=== PATIENT | female | born 1995 | race African-American/Black ===

== ENCOUNTER 2022-07-02 15:34 | Day surgery (SDC) | payer OTHER, SELFPAY ==
[2022-07-02 16:01] VITALS: BMI 34.0
[2022-07-02] MEDS ORDERED: hydrALAZINE 20 MG/ML VIAL SLOW IVP PRN ×2 (16:12→16:15)
[2022-07-02] MEDS ORDERED: Promethazine HCl 25 MG/ML VIAL IM PRN (16:15)
[2022-07-02] MEDS ORDERED: Ondansetron PF 4 MG/2 ML Vial IVP PRN (16:15)
[2022-07-02 17:44] LABS: Mean Corpuscular HGB CONC 32.1 g/dL (32.0-36.0); Mean Corpuscular Hemoglobin 28.5 pg (27.0-33.0); Mean Corpuscular Volume 88.6 fl (81.6-98.3); Mean Platelet Volume 9.1 fl (7.4-10.4); Platelet Count 221 10x3/uL (150-450); RBC Distribution Width 13.2 % (11.5-14.5); Red Blood Cell (RBC) Count 3.16 10x6/uL (3.90-5.03); White Blood Cell (WBC) Count 9.6 10x3/uL (3.5-10.5)
[2022-07-02 18:07] LABS: Bilirubin Neg (Negative); Blood, Urine Negative (Negative); Clarity Clear (Clear); Glucose, Urine (Dipstick) Normal (Negative); Ketone, Urine Negative (Negative); Leukocyte 25 (Negative); Nitrite Negative (Negative); Protein, Urine (Dipstick) 15 mg/dl (Neg-Trace); Specific Gravity, Urine 1.025 (1.005-1.030)
[2022-07-02 18:08] LABS: HBSAg Index 0.18 S/CO (0-0.99); HIV (1/2) Antibody/Antigen Non-Reactive (NonReactive); HIV 1/2 INDEX 0.09 S/CO (<1.00); Hep B Surf Ag - L&D Non-Reactive S/CO (NonReactive)
[2022-07-02 18:09] LABS: Syphilis Antibody Nonreactive (Nonreactive); Syphilis Antibody Index 0.04 S/CO (<1.00 Non-Reactive)
[2022-07-02 18:13] LABS: Amphetamine Not Detected (NotDetected); Barbiturates Screen Not Detected (NotDetected); Benzodiazepine Screen Not Detected (NotDetected); Cocaine Metabolite Screen Not Detected (NotDetected); Methadone Not Detected (NotDetected); Methamphetamine Not Detected (NotDetected); Opiate Screen Not Detected (NotDetected); Oxycodone Screen Not Detected (NotDetected); Phencyclidine (PCP) Not Detected (NotDetected); THC/Cannabinoid Screen Not Detected (NotDetected); Tricyclic Screen Not Detected (NotDetected)
[2022-07-02 18:24] LABS: CAUTI Indications for Culture Pregnancy; RBC/HPF 0-3 HPF (0-3)
[2022-07-02 18:25] LABS: Bacteria/HPF Rare-Few HPF (None Seen); Mucous/LPF 1+ LPF (<2+)
[2022-07-02 18:27] LABS: Urine Culture Reflex Yes Yes
[2022-07-02] MEDS ORDERED: Calcium Carbonate 500 MG ChewTAB PO SCH (19:00)
[2022-07-02 22:37] LABS: Hemoglobin A1c 4.8 % (4.0-6.0)
[2022-07-02 23:48] LABS: HBSAB Concentration 44.44 mIU/mL; Hep B Surf AB Reactive (NonReactive)
[2022-07-03] MEDS ORDERED: Calcium Carbonate 500 MG ChewTAB PO SCH (09:00)
[2022-07-03 11:30] LABS: Chlamydia by PCR, EndoCx Swab Not Detected (NotDetected); GC by PCR, EndoCx Swab Not Detected (NotDetected)
== END 2022-07-02 18:53 | disposition home or self-care (01) ==
LOC: CSHLD/OP 15:34
PROVIDERS: ATTEND Internal Medicine
DX: O23.593 Infection of other part of genital tract in pregnancy, third trimester (principal); O30.003 Twin pregnancy, unspecified number of placenta and unspecified number of amniotic sacs, third trimester; O99.013 Anemia complicating pregnancy, third trimester; D64.9 Anemia, unspecified; Z3A.32 32 weeks gestation of pregnancy
CPT/HCPCS: 36415; 76805; 80306; 81001; 83036; 85027; 86706; 86762; 86780; 86850; 86900; 86901; 87077; 87086; 87340; 87389; 87480; 87491; 87510; 87591; 87660; 99283

== ENCOUNTER 2022-07-13 03:30 | Day surgery (SDC) | payer OTHER ==
[2022-07-13] MEDS ORDERED: hydrALAZINE 20 MG/ML VIAL SLOW IVP PRN (04:02)
[2022-07-13] MEDS ORDERED: Lactated Ringer's 1,000 ML IV SCH (04:15)
[2022-07-13 06:00] LABS: Bilirubin Neg (Negative); Blood, Urine 10 (Negative); Clarity Cloudy (Clear); Glucose, Urine (Dipstick) Normal (Negative); Ketone, Urine 5 mg/dL (Negative); Leukocyte 25 (Negative); Nitrite Negative (Negative); Protein, Urine (Dipstick) 30 mg/dl (Neg-Trace)
[2022-07-13 06:36] LABS: ALT (SGPT) 8 U/L (8-55); AST (SGOT) 13 U/L (5-34); Albumin 3.4 g/dL (3.5-5.0); Alkaline Phosphatase 125 U/L (40-110); Anion Gap 16 mmol/L (10-20); BUN (Urea Nitrogen) 6 mg/dL (7.0-18.7); Bilirubin, Total 0.4 mg/dL (0.2-1.2); Calc. Creatinine Clearance 0 mL/min (70-130); Calcium 8.7 mg/dL (7.8-10.44); Carbon Dioxide 18 mmol/L (22-29); Chloride 107 mmol/L (98-107); Estimated GFR 131; Globulin 2.9 g/dL (2.4-3.5); Glucose 68 mg/dL (70-105); Potassium 3.7 mmol/L (3.5-5.1); Protein, Total 6.3 g/dL (6.0-8.3); Sodium 137 mmol/L (136-145)
[2022-07-13 06:37] LABS: Bacteria/HPF None Seen HPF (None Seen); CAUTI Indications for Culture Dysuria,urgency,freq; RBC/HPF 0-3 HPF (0-3); WBC/HPF 0-3 HPF (0-3)
[2022-07-13 06:38] LABS: Urine Culture Reflex No No
[2022-07-13 06:47] LABS: #Monocytes 0.7 10x3/uL (0.0-1.1); #Neutrophils 6.1 10x3/uL (1.5-8.4); %Basophils 0.4 % (0.0-2.0); %Eosinophils 0.5 % (0.0-6.0); %Lymphocytes 18.4 % (18.0-47.0); %Monocytes 8.3 % (0.0-10.0); %Neutrophils 71.6 % (40.0-75.0); Hemoglobin 9.1 g/dL (12.0-15.5); Mean Corpuscular HGB CONC 32.3 g/dL (32.0-36.0); Mean Corpuscular Hemoglobin 28.3 pg (27.0-33.0); Mean Corpuscular Volume 87.9 fl (81.6-98.3); Mean Platelet Volume 9.5 fl (7.4-10.4); Platelet Count 215 10x3/uL (150-450); RBC Distribution Width 13.3 % (11.5-14.5); Red Blood Cell (RBC) Count 3.21 10x6/uL (3.90-5.03); White Blood Cell (WBC) Count 8.4 10x3/uL (3.5-10.5)
== END 2022-07-13 07:42 | disposition home health service (06) ==
LOC: CSHLD/OP 03:30
PROVIDERS: ATTEND Obstetrics & Gynecology
DX: O46.93 Antepartum hemorrhage, unspecified, third trimester (principal); O40.3XX2 Polyhydramnios, third trimester, fetus 2; O30.003 Twin pregnancy, unspecified number of placenta and unspecified number of amniotic sacs, third trimester; O99.013 Anemia complicating pregnancy, third trimester; D64.9 Anemia, unspecified; O99.323 Drug use complicating pregnancy, third trimester; F15.10 Other stimulant abuse, uncomplicated; O99.333 Smoking (tobacco) complicating pregnancy, third trimester; F17.210 Nicotine dependence, cigarettes, uncomplicated; O23.593 Infection of other part of genital tract in pregnancy, third trimester; O23.43 Unspecified infection of urinary tract in pregnancy, third trimester; R30.0 Dysuria; O99.413 Diseases of the circulatory system complicating pregnancy, third trimester; R00.0 Tachycardia, unspecified; B96.89 Other specified bacterial agents as the cause of diseases classified elsewhere; Z79.82 Long term (current) use of aspirin; Z79.899 Other long term (current) drug therapy; Z3A.34 34 weeks gestation of pregnancy
CPT/HCPCS: 76805; 76810; 80053; 81001; 85025; 87480; 87510; 87660; 99285

== ENCOUNTER 2022-07-16 15:17 | Day surgery (SDC) | payer OTHER ==
[2022-07-16 16:13] VITALS: BMI 34.0
[2022-07-16] MEDS ORDERED: hydrALAZINE 20 MG/ML VIAL SLOW IVP PRN (16:18)
[2022-07-16] MEDS ORDERED: Calcium Carbonate 500 MG ChewTAB PO SCH (18:00)
== END 2022-07-16 18:55 | disposition home or self-care (01) ==
LOC: CSHLD/OP 15:17
PROVIDERS: ATTEND Family Medicine
DX: O36.63X0 Maternal care for excessive fetal growth, third trimester, not applicable or unspecified (principal); O99.214 Obesity complicating childbirth; E66.9 Obesity, unspecified; O30.043 Twin pregnancy, dichorionic/diamniotic, third trimester; O09.43 Supervision of pregnancy with grand multiparity, third trimester; O99.013 Anemia complicating pregnancy, third trimester; D50.9 Iron deficiency anemia, unspecified; O99.613 Diseases of the digestive system complicating pregnancy, third trimester; K21.9 Gastro-esophageal reflux disease without esophagitis; K30 Functional dyspepsia; Z90.89 Acquired absence of other organs; Z79.899 Other long term (current) drug therapy; Z87.891 Personal history of nicotine dependence; Z3A.34 34 weeks gestation of pregnancy
CPT/HCPCS: 99282

== ENCOUNTER 2022-07-22 12:32 | Day surgery (SDC) | payer OTHER ==
[2022-07-22] MEDS ORDERED: hydrALAZINE 20 MG/ML VIAL SLOW IVP PRN (13:46)
[2022-07-22] MEDS ORDERED: Acetaminophen 500 MG TAB PO SCH (14:00)
[2022-07-22 14:16] VITALS: BMI 36.3
[2022-07-22 14:49] LABS: Creatinine, Urine 192.89 mg/dL (47-110)
[2022-07-22 14:58] LABS: #Eosinphils 0.1 10x3/uL (0.0-0.5); #Monocytes 0.7 10x3/uL (0.0-1.1); #Neutrophils 7.2 10x3/uL (1.5-8.4); %Basophils 0.4 % (0.0-2.0); %Eosinophils 0.5 % (0.0-6.0); %Lymphocytes 18.7 % (18.0-47.0); %Monocytes 6.9 % (0.0-10.0); %Neutrophils 72.8 % (40.0-75.0); Hemoglobin 9.2 g/dL (12.0-15.5); Mean Corpuscular HGB CONC 31.7 g/dL (32.0-36.0); Mean Corpuscular Hemoglobin 28.1 pg (27.0-33.0); Mean Corpuscular Volume 88.7 fl (81.6-98.3); Mean Platelet Volume 9.2 fl (7.4-10.4); Platelet Count 225 10x3/uL (150-450); RBC Distribution Width 13.6 % (11.5-14.5); Red Blood Cell (RBC) Count 3.27 10x6/uL (3.90-5.03); White Blood Cell (WBC) Count 9.8 10x3/uL (3.5-10.5)
[2022-07-22 15:11] LABS: ALT (SGPT) 10 U/L (8-55); AST (SGOT) 14 U/L (5-34); Albumin 3.5 g/dL (3.5-5.0); Alkaline Phosphatase 137 U/L (40-110); Anion Gap 17 mmol/L (10-20); BUN (Urea Nitrogen) 4 mg/dL (7.0-18.7); Bilirubin, Total 0.5 mg/dL (0.2-1.2); Calc. Creatinine Clearance 263 mL/min (70-130); Calcium 8.7 mg/dL (7.8-10.44); Carbon Dioxide 17 mmol/L (22-29); Chloride 106 mmol/L (98-107); Estimated GFR 130; Globulin 3.1 g/dL (2.4-3.5); Glucose 68 mg/dL (70-105); Potassium 3.9 mmol/L (3.5-5.1); Protein, Total 6.6 g/dL (6.0-8.3); Sodium 136 mmol/L (136-145)
== END 2022-07-22 15:35 | disposition home or self-care (01) ==
LOC: CSHLD/OP 12:32
PROVIDERS: ATTEND Student in an Organized Health Care Education/Training Program
DX: O99.891 Other specified diseases and conditions complicating pregnancy (principal); R03.0 Elevated blood-pressure reading, without diagnosis of hypertension; O99.013 Anemia complicating pregnancy, third trimester; D64.9 Anemia, unspecified; O99.333 Smoking (tobacco) complicating pregnancy, third trimester; F17.210 Nicotine dependence, cigarettes, uncomplicated; O99.213 Obesity complicating pregnancy, third trimester; E66.9 Obesity, unspecified; Z87.59 Personal history of other complications of pregnancy, childbirth and the puerperium; O09.33 Supervision of pregnancy with insufficient antenatal care, third trimester; O23.593 Infection of other part of genital tract in pregnancy, third trimester; B37.31 Acute candidiasis of vulva and vagina; O30.043 Twin pregnancy, dichorionic/diamniotic, third trimester; Z79.899 Other long term (current) drug therapy; Z22.330 Carrier of Group B streptococcus; Z3A.35 35 weeks gestation of pregnancy
CPT/HCPCS: 36415; 80053; 82570; 84156; 85025

== ENCOUNTER 2022-07-30 03:15 | Inpatient (IN) | payer OTHER ==
[2022-07-30 03:41] VITALS: BMI 35.2
[2022-07-30] MEDS: Lactated Ringer's 1,000 ML IV SCH ×2 (03:46→04:55)
[2022-07-30] MEDS ORDERED: hydrALAZINE 20 MG/ML VIAL SLOW IVP PRN ×2 (04:17→06:19)
[2022-07-30] MEDS ORDERED: fentaNYL 50 mcg/mL 1 mL Vial SLOW IVP PRN (04:45)
[2022-07-30] MEDS ORDERED: Ondansetron PF 4 MG/2 ML Vial IVP PRN ×5 (06:19→23:02)
[2022-07-30] MEDS ORDERED: Promethazine HCl 25 MG/ML VIAL IM PRN ×5 (06:19→23:02)
[2022-07-30] MEDS ORDERED: Lidocaine 1% (PF) 30 ML VIAL SC PRN (06:19)
[2022-07-30] MEDS ORDERED: Carboprost 250 MCG/ML AMP IM PRN (06:20)
[2022-07-30] MEDS ORDERED: Misoprostol 200 MCG TAB PR PRN (06:20)
[2022-07-30] MEDS ORDERED: Methylergonovine 0.2 MG/ML VIAL IM PRN (06:20)
[2022-07-30] MEDS ORDERED: Tranexamic Acid 1,000 MG/10 ML VIAL IVP PRN (06:20)
[2022-07-30] MEDS ORDERED: Diphenoxylate HCl/Atropine Tablet PO PRN (06:20)
[2022-07-30] MEDS ORDERED: NS w/ Oxytocin 30 units 500 ML IV SCH ×2 (06:30)
[2022-07-30] MEDS ORDERED: Lactated Ringer's 1,000 ML IV SCH (06:30)
[2022-07-30] MEDS ORDERED: Penicillin G Potassium 5 MILL.UNITS in Sodium Chloride 0.9% 100 ML IVPB SCH (06:30)
[2022-07-30 07:04] LABS: Mean Corpuscular HGB CONC 31.5 g/dL (32.0-36.0); Mean Corpuscular Hemoglobin 27.7 pg (27.0-33.0); Mean Corpuscular Volume 87.8 fl (81.6-98.3); Mean Platelet Volume 9.5 fl (7.4-10.4); Platelet Count 248 10x3/uL (150-450); RBC Distribution Width 13.8 % (11.5-14.5); Red Blood Cell (RBC) Count 3.61 10x6/uL (3.90-5.03); White Blood Cell (WBC) Count 12.9 10x3/uL (3.5-10.5)
[2022-07-30] MEDS ORDERED: Fentanyl 2 mcg/Bup 0.1% Cadd 100 ML ONE (07:27)
[2022-07-30 07:29] LABS: Syphilis Antibody Nonreactive (Nonreactive); Syphilis Antibody Index 0.06 S/CO (<1.00 Non-Reactive)
[2022-07-30 07:31] LABS: HBSAg Index 0.12 S/CO (0-0.99); Hep B Surf Ag - L&D Non-Reactive S/CO (NonReactive)
[2022-07-30 09:32] LABS: ALT (SGPT) 10 U/L (8-55); AST (SGOT) 19 U/L (5-34); Albumin 3.6 g/dL (3.5-5.0); Alkaline Phosphatase 139 U/L (40-110); Anion Gap 18 mmol/L (10-20); BUN (Urea Nitrogen) 8 mg/dL (7.0-18.7); Bilirubin, Total 0.6 mg/dL (0.2-1.2); Calc. Creatinine Clearance 216 mL/min (70-130); Calcium 9.1 mg/dL (7.8-10.44); Carbon Dioxide 16 mmol/L (22-29); Chloride 107 mmol/L (98-107); Estimated GFR 124; Globulin 2.8 g/dL (2.4-3.5); Glucose 77 mg/dL (70-105); Potassium 3.9 mmol/L (3.5-5.1); Protein, Total 6.4 g/dL (6.0-8.3); Sodium 137 mmol/L (136-145)
[2022-07-30] MEDS: Penicillin G 2.5 MILL.units 2.5 MILL.UNITS in Premix Bag 1 BAG IVPB SCH (10:41)
[2022-07-30] MEDS ORDERED: Acetaminophen 325 MG TAB PO PRN (11:29)
[2022-07-30] MEDS ORDERED: Lactated Ringer's 500 ML IV PRN (11:29)
[2022-07-30] MEDS ORDERED: ePHEDrine Sulfate 50 MG/10 ML VIAL SLOW IVP PRN (11:29)
[2022-07-30] MEDS ORDERED: Moisturizing Cream (Eucerin) 113 GM JAR TOP PRN ×3 (11:29→23:02)
[2022-07-30] MEDS ORDERED: diphenhydrAMINE 50 MG/ML VIAL IVP PRN ×4 (11:29→23:02)
[2022-07-30] MEDS ORDERED: Naloxone HCl 0.4 mg/ml Vial IVP PRN ×6 (11:29→23:02)
[2022-07-30] MEDS ORDERED: Fentanyl 2 mcg/Bupivacaine 0.1% Cassette 100 ML EPIDURAL SCH (11:30)
[2022-07-30] MEDS ORDERED: Communication Order-Pharmacy FS SCH ×4 (11:30→23:15)
[2022-07-30] MEDS ORDERED: ePHEDrine Sulfate 50 MG/10 ML VIAL ONE (16:00)
[2022-07-30] MEDS ORDERED: Bupivacaine PF 0.5% 30 ML VIAL ONE (16:00)
[2022-07-30] MEDS ORDERED: Lidocaine 2% MPF 10 ML AMP (For Epidural Use) ONE (16:00)
[2022-07-30] MEDS ORDERED: Fentanyl 250 MCG/5 ML VIAL ONE ×2 (19:03→19:33)
[2022-07-30] MEDS ORDERED: CEFAZOLIN 1 GM VIAL ONE (19:13)
[2022-07-30] MEDS ORDERED: Azithromycin 500 MG VIAL ONE (19:14)
[2022-07-30] MEDS ORDERED: Ondansetron PF 4 MG/2 ML Vial ONE (19:17)
[2022-07-30] MEDS ORDERED: Metoclopramide HCl 10 MG/2 ML VIAL ONE (19:17)
[2022-07-30] MEDS ORDERED: Dexamethasone 4 mg/ml Vial ONE (19:17)
[2022-07-30] MEDS ORDERED: PHENYLEPHRINE-NS 100 MCG/ML 10 ML SYRINGE ONE (19:21)
[2022-07-30] MEDS ORDERED: Morphine PF 10 MG/10 ML VIAL ONE (19:23)
[2022-07-30 19:37] LABS: pH (Cord, venous) 6.952 (7.250-7.350)
[2022-07-30] MEDS ORDERED: Fentanyl 100 MCG/2 ML VIAL ONE (20:39)
[2022-07-30] MEDS ORDERED: Ketamine 50 MG/ML (10ML VIAL) ONE (20:40)
[2022-07-30] MEDS ORDERED: Ketorolac Tromethamine 30 MG/ML VIAL ONE (20:41)
[2022-07-30] MEDS ORDERED: Ketorolac Tromethamine 30 MG/ML VIAL IVP PRN ×2 (20:47→23:02)
[2022-07-30] MEDS ORDERED: Naloxone HCl 0.4 mg/ml Vial IV PRN ×3 (20:47→23:02)
[2022-07-30] MEDS ORDERED: Fentanyl 100 MCG/2 ML VIAL SLOW IVP PRN ×2 (20:47→23:02)
[2022-07-30] MEDS ORDERED: Ondansetron HCl/PF 4 MG/2 ML Vial IVP PRN ×2 (20:47→23:02)
[2022-07-30] MEDS ORDERED: Promethazine HCl 25 MG SUPP PR PRN ×2 (20:47→23:02)
[2022-07-30] MEDS ORDERED: Meperidine HCl/PF 25 MG/ML VIAL SLOW IVP PRN ×2 (20:47→23:02)
[2022-07-30] MEDS ORDERED: Zolpidem Tartrate 5 MG TAB PO PRN (20:48)
[2022-07-30] MEDS ORDERED: diphenhydrAMINE 50 MG/ML VIAL IM PRN (20:48)
[2022-07-30] MEDS ORDERED: FENTANYL 500 MCG/10 ML VIAL 1,000 MCG in Sodium Chloride 0.9% 30 ML IV PRN (20:48)
[2022-07-30] MEDS ORDERED: diphenhydrAMINE 25 MG CAP PO PRN (20:48)
[2022-07-30] MEDS ORDERED: Ketorolac Tromethamine 30 MG/ML VIAL IVP SCH ×2 (21:00→23:15)
[2022-07-30 21:52] LABS: Hemoglobin 9.6 g/dL (12.0-15.5); Mean Corpuscular HGB CONC 32.1 g/dL (32.0-36.0); Mean Corpuscular Hemoglobin 27.6 pg (27.0-33.0); Mean Corpuscular Volume 85.9 fl (81.6-98.3); Mean Platelet Volume 9.6 fl (7.4-10.4); Platelet Count 199 10x3/uL (150-450); RBC Distribution Width 14.3 % (11.5-14.5); Red Blood Cell (RBC) Count 3.48 10x6/uL (3.90-5.03); White Blood Cell (WBC) Count 19.2 10x3/uL (3.5-10.5)
[2022-07-30 22:26] LABS: Fibrinogen 301 mg/dL (220-504); INR-International Normal Ratio 0.9; PTT 27.7 sec (22.0-33.0); Prothrombin Time 10.1 sec (9.5-12.1)
[2022-07-30 22:27] LABS: D-Dimer Test Greater than 35.20 mg/L FEU (0.19-0.50)
[2022-07-31] MEDS ORDERED: hydrALAZINE 20 MG/ML VIAL SLOW IVP PRN (03:51)
[2022-07-31] MEDS ORDERED: HYDROcodone/Acetaminophen 5/325 mg Tablet PO PRN (03:51)
[2022-07-31] MEDS ORDERED: Boostrix 0.5 ML (Tdap) VIAL (>/=7 yrs of age) IM ONE (03:51)
[2022-07-31] MEDS ORDERED: Ondansetron PF 4 MG/2 ML Vial IVP PRN (03:51)
[2022-07-31] MEDS ORDERED: Ferrous Sulfate 325 MG TAB PO SCH (04:00)
[2022-07-31] MEDS ORDERED: Docusate 100 MG CAP PO SCH (04:00)
[2022-07-31] MEDS: Ibuprofen 800 MG TAB PO SCH (09:02)
[2022-07-31] MEDS: Prenatal Vitamin 1 TAB PO SCH (09:02)
[2022-07-31 10:59] LABS: Hemoglobin 9.3 g/dL (12.0-15.5)
[2022-07-31] MEDS: HYDROcodone/Acetaminophen 5/325 mg Tablet PO PRN ×2 (15:31→20:15)
[2022-07-31] MEDS: Penicillin G 2.5 MILL.units 2.5 MILL.UNITS in Premix Bag 1 BAG IVPB SCH ×2 (16:04→16:05)
[2022-07-31] MEDS: Simethicone Chewable 80 MG TAB PO PRN (20:15)
[2022-07-31] MEDS: Docusate 100 MG CAP PO SCH (20:15)
[2022-07-31] MEDS: Ferrous Sulfate 325 MG TAB PO SCH (20:15)
[2022-08-01] MEDS: HYDROcodone/Acetaminophen 5/325 mg Tablet PO PRN ×4 (00:28→18:54)
[2022-08-01] MEDS: Simethicone Chewable 80 MG TAB PO PRN ×3 (00:28→08:43)
[2022-08-01] MEDS: Ibuprofen 800 MG TAB PO SCH ×2 (01:56→08:42)
[2022-08-01 02:46] LABS: Hemoglobin 8.7 g/dL (12.0-15.5); Mean Corpuscular HGB CONC 32.3 g/dL (32.0-36.0); Mean Corpuscular Hemoglobin 27.3 pg (27.0-33.0); Mean Corpuscular Volume 84.3 fl (81.6-98.3); Mean Platelet Volume 9.2 fl (7.4-10.4); Platelet Count 177 10x3/uL (150-450); Red Blood Cell (RBC) Count 3.19 10x6/uL (3.90-5.03); White Blood Cell (WBC) Count 12.8 10x3/uL (3.5-10.5)
[2022-08-01] MEDS ORDERED: Ibuprofen 800 MG TAB PO SCH (06:00)
[2022-08-01] MEDS: Docusate 100 MG CAP PO SCH ×2 (08:41→22:10)
[2022-08-01] MEDS: Ferrous Sulfate 325 MG TAB PO SCH ×2 (08:41→22:10)
[2022-08-01] MEDS: Prenatal Vitamin 1 TAB PO SCH (08:43)
[2022-08-01] MEDS ORDERED: Polyethylene Glycol 3350 17 GM Packet PO SCH (09:00)
[2022-08-01] MEDS ORDERED: HYDROcodone/Acetaminophen 5/325 mg Tablet PO PRN (10:22)
[2022-08-01] MEDS: Acetaminophen 325 MG TAB PO SCH ×2 (17:14→19:06)
[2022-08-01] MEDS: Ibuprofen 600 MG TAB PO SCH ×2 (17:22→18:54)
[2022-08-01] MEDS ORDERED: fentaNYL 50 mcg/mL 1 mL Vial SLOW IVP SCH (21:45)
[2022-08-01] MEDS ORDERED: Piperacillin/Tazobactam 3.375 GM in Sodium Chloride 0.9% 100 ML IVPB SCH (21:45)
[2022-08-01] MEDS: Polyethylene Glycol 3350 17 GM Packet PO SCH (22:10)
[2022-08-01 22:19] LABS: #Monocytes 0.7 10x3/uL (0.0-1.1); #Neutrophils 10.5 10x3/uL (1.5-8.4); %Basophils 0.2 % (0.0-2.0); %Eosinophils 0.2 % (0.0-6.0); %Lymphocytes 8.3 % (18.0-47.0); %Monocytes 5.3 % (0.0-10.0); %Neutrophils 85.6 % (40.0-75.0); Hemoglobin 8.7 g/dL (12.0-15.5); Mean Corpuscular HGB CONC 31.9 g/dL (32.0-36.0); Mean Corpuscular Hemoglobin 26.9 pg (27.0-33.0); Mean Corpuscular Volume 84.5 fl (81.6-98.3); Mean Platelet Volume 9.6 fl (7.4-10.4); Platelet Count 196 10x3/uL (150-450); RBC Distribution Width 15.1 % (11.5-14.5); Red Blood Cell (RBC) Count 3.23 10x6/uL (3.90-5.03); White Blood Cell (WBC) Count 12.2 10x3/uL (3.5-10.5)
[2022-08-01 22:30] LABS: ALT (SGPT) 7 U/L (8-55); AST (SGOT) 16 U/L (5-34); Albumin 2.9 g/dL (3.5-5.0); Alkaline Phosphatase 109 U/L (40-110); Anion Gap 14 mmol/L (10-20); BUN (Urea Nitrogen) 8 mg/dL (7.0-18.7); Bilirubin, Total 0.6 mg/dL (0.2-1.2); Calc. Creatinine Clearance 263 mL/min (70-130); Calcium 8.1 mg/dL (7.8-10.44); Carbon Dioxide 19 mmol/L (22-29); Chloride 110 mmol/L (98-107); Estimated GFR 130; Globulin 2.3 g/dL (2.4-3.5); Glucose 80 mg/dL (70-105); Potassium 3.8 mmol/L (3.5-5.1); Protein, Total 5.2 g/dL (6.0-8.3); Sodium 139 mmol/L (136-145)
[2022-08-02] MEDS: HYDROcodone/Acetaminophen 5/325 mg Tablet PO PRN ×2 (00:17→06:28)
[2022-08-02] MEDS ORDERED: Piperacillin/Tazobactam 3.375 GM in Sodium Chloride 0.9% 100 ML IVPB SCH ×2 (02:00→04:00)
[2022-08-02] MEDS ORDERED: Sodium Chloride 0.9% 100 ML ONE (04:01)
[2022-08-02] MEDS ORDERED: Piperacillin/Tazobactam 3.375 GM VIAL ONE (04:06)
[2022-08-02 04:37] LABS: #Monocytes 0.7 10x3/uL (0.0-1.1); %Basophils 0.3 % (0.0-2.0); %Eosinophils 0.2 % (0.0-6.0); %Lymphocytes 8.6 % (18.0-47.0); %Monocytes 6.4 % (0.0-10.0); Hemoglobin 8.4 g/dL (12.0-15.5); Mean Corpuscular HGB CONC 31.2 g/dL (32.0-36.0); Mean Corpuscular Hemoglobin 27.2 pg (27.0-33.0); Mean Corpuscular Volume 87.1 fl (81.6-98.3); Mean Platelet Volume 9.7 fl (7.4-10.4); Platelet Count 180 10x3/uL (150-450); RBC Distribution Width 15.2 % (11.5-14.5); Red Blood Cell (RBC) Count 3.09 10x6/uL (3.90-5.03); White Blood Cell (WBC) Count 10.7 10x3/uL (3.5-10.5)
[2022-08-02] MEDS ORDERED: Lactated Ringer's 500 ML IV SCH (04:45)
[2022-08-02] MEDS ORDERED: Ibuprofen 800 MG TAB PO SCH (05:30)
[2022-08-02] MEDS ORDERED: Vancomycin 1.5 GRAM/300 ML BAG 1.5 GM in Premix Bag 1 BAG IVPB SCH ×2 (06:00→17:00)
[2022-08-02 06:25] LABS: Bilirubin Neg (Negative); Blood, Urine Negative (Negative); Clarity Slightly Cloudy (Clear); Glucose, Urine (Dipstick) Normal (Negative); Ketone, Urine 5 mg/dL (Negative); Leukocyte 25 (Negative); Nitrite Negative (Negative); Protein, Urine (Dipstick) 30 mg/dl (Neg-Trace)
[2022-08-02 06:32] LABS: RBC/HPF None Seen HPF (0-3); WBC/HPF 0-3 HPF (0-3)
[2022-08-02 06:33] LABS: Bacteria/HPF Rare-Few HPF (None Seen); Squamous Epithelial 0-3 HPF (0-3)
[2022-08-02] MEDS: Simethicone Chewable 80 MG TAB PO PRN ×4 (07:37→23:31)
[2022-08-02] MEDS ORDERED: Gentamicin 80 MG/2 ML VIAL IM SCH (08:00)
[2022-08-02] MEDS ORDERED: Morphine 4 MG/ML VIAL IM SCH (08:00)
[2022-08-02] MEDS ORDERED: Morphine 2 MG/ML VIAL SLOW IVP SCH (08:15)
[2022-08-02] MEDS ORDERED: Piperacillin/Tazobactam 4.5 GM in Sodium Chloride 0.9% 100 ML IVPB SCH (08:30)
[2022-08-02 08:44] LABS: #Monocytes 0.6 10x3/uL (0.0-1.1); #Neutrophils 9.1 10x3/uL (1.5-8.4); %Basophils 0.2 % (0.0-2.0); %Eosinophils 0.1 % (0.0-6.0); %Lymphocytes 8.2 % (18.0-47.0); %Monocytes 5.8 % (0.0-10.0); %Neutrophils 85.3 % (40.0-75.0); Hemoglobin 8.2 g/dL (12.0-15.5); Mean Corpuscular HGB CONC 31.9 g/dL (32.0-36.0); Mean Corpuscular Hemoglobin 27.2 pg (27.0-33.0); Mean Corpuscular Volume 85.1 fl (81.6-98.3); Mean Platelet Volume 9.2 fl (7.4-10.4); Platelet Count 183 10x3/uL (150-450); RBC Distribution Width 15.1 % (11.5-14.5); Red Blood Cell (RBC) Count 3.02 10x6/uL (3.90-5.03); White Blood Cell (WBC) Count 10.6 10x3/uL (3.5-10.5)
[2022-08-02] MEDS ORDERED: Lactated Ringer's 1,000 ML IV SCH ×2 (08:45→11:30)
[2022-08-02] MEDS ORDERED: HYDROcodone/Acetaminophen 7.5/325 mg Tablet PO PRN (08:45)
[2022-08-02] MEDS ORDERED: VANCOMYCIN 2 GRAM/400 ML BAG 2 GM in Premix Bag 1 BAG IVPB SCH (09:00)
[2022-08-02] MEDS ORDERED: Vancomycin HCl 2.5 GM, Admixture Fee 1 EACH in Sodium Chloride 0.9% 500 ML IVPB SCH (09:30)
[2022-08-02] MEDS: Acetaminophen 325 MG TAB PO SCH ×4 (09:30→17:05)
[2022-08-02] MEDS: Polyethylene Glycol 3350 17 GM Packet PO SCH ×2 (09:30→23:23)
[2022-08-02] MEDS: Ibuprofen 600 MG TAB PO SCH ×5 (09:30→23:22)
[2022-08-02] MEDS: Docusate 100 MG CAP PO SCH ×2 (09:31→21:04)
[2022-08-02] MEDS: Ferrous Sulfate 325 MG TAB PO SCH ×2 (09:31→21:03)
[2022-08-02] MEDS: Prenatal Vitamin 1 TAB PO SCH (09:31)
[2022-08-02] MEDS ORDERED: Iopamidol 300 61% 100 ML VIAL FS ONE (10:02)
[2022-08-02] MEDS: HYDROcodone/Acetaminophen 10/325 mg Tablet PO PRN ×2 (12:28→17:34)
[2022-08-02 14:13] LABS: Vancomycin, Peak 38.4 ug/mL (20.0-40.0)
[2022-08-02 14:23] LABS: ALT (SGPT) 6 U/L (8-55); AST (SGOT) 14 U/L (5-34); Albumin 2.7 g/dL (3.5-5.0); Alkaline Phosphatase 101 U/L (40-110); Anion Gap 15 mmol/L (10-20); BUN (Urea Nitrogen) 7 mg/dL (7.0-18.7); Bilirubin, Total 0.8 mg/dL (0.2-1.2); Calc. Creatinine Clearance 230 mL/min (70-130); Calcium 7.9 mg/dL (7.8-10.44); Carbon Dioxide 19 mmol/L (22-29); Chloride 106 mmol/L (98-107); Estimated GFR 126; Globulin 2.6 g/dL (2.4-3.5); Glucose 87 mg/dL (70-105); Potassium 3.6 mmol/L (3.5-5.1); Protein, Total 5.3 g/dL (6.0-8.3); Sodium 136 mmol/L (136-145)
[2022-08-02] MEDS: Sodium Chloride 0.9% 1,000 ML IV SCH ×2 (15:00→16:24)
[2022-08-02] MEDS ORDERED: Morphine 4 MG/ML VIAL SLOW IVP SCH (15:00)
[2022-08-02] MEDS: Piperacillin/Tazobactam 3.375 GM in Sodium Chloride 0.9% 100 ML IVPB SCH ×2 (15:09→21:05)
[2022-08-02] MEDS: VANCOMYCIN 2 GRAM/400 ML BAG 2 GM in Premix Bag 1 BAG IVPB SCH (17:34)
[2022-08-02] MEDS ORDERED: Morphine 4 MG/ML VIAL SLOW IVP PRN (17:59)
[2022-08-03] MEDS: VANCOMYCIN 2 GRAM/400 ML BAG 2 GM in Premix Bag 1 BAG IVPB SCH (01:35)
[2022-08-03] MEDS: HYDROcodone/Acetaminophen 10/325 mg Tablet PO PRN (01:57)
[2022-08-03 03:24] LABS: #Eosinphils 0.1 10x3/uL (0.0-0.5); #Monocytes 0.9 10x3/uL (0.0-1.1); #Neutrophils 8.5 10x3/uL (1.5-8.4); %Basophils 0.4 % (0.0-2.0); %Eosinophils 0.7 % (0.0-6.0); %Lymphocytes 6.8 % (18.0-47.0); %Monocytes 8.5 % (0.0-10.0); Hemoglobin 8.7 g/dL (12.0-15.5); Mean Corpuscular HGB CONC 30.9 g/dL (32.0-36.0); Mean Corpuscular Volume 87.6 fl (81.6-98.3); Mean Platelet Volume 9.4 fl (7.4-10.4); Platelet Count 219 10x3/uL (150-450); RBC Distribution Width 15.2 % (11.5-14.5); Red Blood Cell (RBC) Count 3.22 10x6/uL (3.90-5.03); White Blood Cell (WBC) Count 10.2 10x3/uL (3.5-10.5)
[2022-08-03 03:31] LABS: ALT (SGPT) 9 U/L (8-55); AST (SGOT) 15 U/L (5-34); Albumin 2.8 g/dL (3.5-5.0); Alkaline Phosphatase 104 U/L (40-110); Anion Gap 15 mmol/L (10-20); BUN (Urea Nitrogen) 10 mg/dL (7.0-18.7); Bilirubin, Total 0.6 mg/dL (0.2-1.2); CRP (Inflammatory) 28.21 mg/dL (= or < 0.5); Calc. Creatinine Clearance 249 mL/min (70-130); Calcium 8.2 mg/dL (7.8-10.44); Carbon Dioxide 18 mmol/L (22-29); Chloride 108 mmol/L (98-107); Estimated GFR 128; Globulin 2.7 g/dL (2.4-3.5); Glucose 79 mg/dL (70-105); Potassium 3.7 mmol/L (3.5-5.1); Protein, Total 5.5 g/dL (6.0-8.3); Sodium 137 mmol/L (136-145)
[2022-08-03] MEDS: Ibuprofen 600 MG TAB PO SCH ×5 (04:46→23:00)
[2022-08-03] MEDS: Piperacillin/Tazobactam 3.375 GM in Sodium Chloride 0.9% 100 ML IVPB SCH ×3 (04:46→21:03)
[2022-08-03] MEDS: Sodium Chloride 0.9% 1,000 ML IV SCH (04:49)
[2022-08-03] MEDS ORDERED: Bisacodyl 10 MG SUPP PR PRN (06:05)
[2022-08-03] MEDS: Simethicone Chewable 80 MG TAB PO PRN (06:20)
[2022-08-03 08:59] LABS: Vancomycin, Trough 23.3 ug/mL
[2022-08-03] MEDS: Ferrous Sulfate 325 MG TAB PO SCH ×2 (11:18→22:28)
[2022-08-03] MEDS: Prenatal Vitamin 1 TAB PO SCH (11:18)
[2022-08-03] MEDS: Docusate 100 MG CAP PO SCH ×2 (11:18→22:36)
[2022-08-03] MEDS: Vancomycin 1.5 GRAM/300 ML BAG 1.5 GM in Premix Bag 1 BAG IVPB SCH ×2 (11:19→19:00)
[2022-08-03] MEDS: Polyethylene Glycol 3350 17 GM Packet PO SCH ×2 (15:37→22:36)
[2022-08-04] MEDS: Vancomycin 1.5 GRAM/300 ML BAG 1.5 GM in Premix Bag 1 BAG IVPB SCH (02:30)
[2022-08-04 03:31] LABS: ALT (SGPT) 10 U/L (8-55); AST (SGOT) 13 U/L (5-34); Albumin 2.6 g/dL (3.5-5.0); Alkaline Phosphatase 100 U/L (40-110); Anion Gap 15 mmol/L (10-20); BUN (Urea Nitrogen) 10 mg/dL (7.0-18.7); Bilirubin, Total 0.4 mg/dL (0.2-1.2); Calc. Creatinine Clearance 234 mL/min (70-130); Calcium 7.5 mg/dL (7.8-10.44); Carbon Dioxide 18 mmol/L (22-29); Chloride 111 mmol/L (98-107); Estimated GFR 126; Glucose 72 mg/dL (70-105); Potassium 4.1 mmol/L (3.5-5.1); Protein, Total 4.6 g/dL (6.0-8.3); Sodium 140 mmol/L (136-145)
[2022-08-04] MEDS: Ibuprofen 600 MG TAB PO SCH ×2 (04:43→12:24)
[2022-08-04] MEDS: Piperacillin/Tazobactam 3.375 GM in Sodium Chloride 0.9% 100 ML IVPB SCH (04:43)
[2022-08-04 07:28] VITALS: BP 127/82; TEMP 98
[2022-08-04] MEDS: Docusate 100 MG CAP PO SCH ×2 (08:44→08:48)
[2022-08-04] MEDS: Prenatal Vitamin 1 TAB PO SCH (08:44)
[2022-08-04] MEDS: Ferrous Sulfate 325 MG TAB PO SCH (08:44)
[2022-08-04] MEDS: Polyethylene Glycol 3350 17 GM Packet PO SCH (08:45)
[2022-08-04] MEDS ORDERED: metroNIDAZOLE 500 MG TAB PO SCH (09:00)
[2022-08-04] MEDS ORDERED: AMOXicillin 500 MG CAP PO SCH (10:00)
[2022-08-04] MEDS: AMOXicillin 250 MG CAP PO SCH ×2 (10:29→17:38)
== END 2022-08-04 18:00 | disposition home or self-care (01) | DRG 783 ==
LOC: CSHLD/OP 03:15 → CSHLD 06:20 → CSHPP 07-31 15:50
PROVIDERS: ADMIT Obstetrics & Gynecology; ATTEND Obstetrics & Gynecology
PROC: 10E0XZZ Delivery of Products of Conception, External Approach (ICD-10-PCS; principal; 2022-07-30)
PROC: 10D00Z1 Extraction of Products of Conception, Low, Open Approach (ICD-10-PCS; 2022-07-30)
PROC: 10907ZC Drainage of Amniotic Fluid, Therapeutic from Products of Conception, Via Natural or Artificial Opening (ICD-10-PCS; 2022-07-30)
PROC: 10H07YZ Insertion of Other Device into Products of Conception, Via Natural or Artificial Opening (ICD-10-PCS; 2022-07-30)
PROC: 30233N1 Transfusion of Nonautologous Red Blood Cells into Peripheral Vein, Percutaneous Approach (ICD-10-PCS; 2022-07-30)
PROC: 0UT70ZZ Resection of Bilateral Fallopian Tubes, Open Approach (ICD-10-PCS; 2022-07-30)
DX: O60.14X2 Preterm labor third trimester with preterm delivery third trimester, fetus 2 (principal); O85 Puerperal sepsis; O72.1 Other immediate postpartum hemorrhage; O98.82 Other maternal infectious and parasitic diseases complicating childbirth; O86.12 Endometritis following delivery; O60.14X1 Preterm labor third trimester with preterm delivery third trimester, fetus 1; O30.043 Twin pregnancy, dichorionic/diamniotic, third trimester; Z3A.36 36 weeks gestation of pregnancy; Z37.2 Twins, both liveborn; D64.9 Anemia, unspecified; O99.02 Anemia complicating childbirth; E66.9 Obesity, unspecified; O99.214 Obesity complicating childbirth; O76 Abnormality in fetal heart rate and rhythm complicating labor and delivery; O69.81X1 Labor and delivery complicated by cord around neck, without compression, fetus 1; O32.8XX2 Maternal care for other malpresentation of fetus, fetus 2; B37.31 Acute candidiasis of vulva and vagina; O13.4 Gestational [pregnancy-induced] hypertension without significant proteinuria, complicating childbirth; O99.824 Streptococcus B carrier state complicating childbirth; F17.210 Nicotine dependence, cigarettes, uncomplicated; O99.334 Smoking (tobacco) complicating childbirth; Z90.89 Acquired absence of other organs; Z80.3 Family history of malignant neoplasm of breast; Z79.899 Other long term (current) drug therapy; K59.00 Constipation, unspecified; O99.63 Diseases of the digestive system complicating the puerperium
CPT/HCPCS: 36415; 36416; 36430; 51702; 70491; 71045; 71250; 71260; 74177; 80053; 80202; 81001; 82570; 82805; 83605; 84145; 84156; 85014; 85018; 85025; 85027; 85049; 85300; 85362; 85379; 85384; 85610; 85730; 86140; 86780; 86850; 86900; 86901; 87040; 87086; 87340; 88302; 88307; 93005; 93010; 99285; J0690; J1100; J1650; J1885; J2270; J2272; J2274; J2405; J2540; J2543; J2590; J2765; J3010; J3370; J3490; J7030; J7050; P9016; Q9967; S0020